=== PATIENT | male | born 1950 | race Caucasian/White ===

== ENCOUNTER 2019-02-02 10:27 | Emergency (ER) | payer OTHER ==
[~2019-02-02] VITALS: Ht 182.9 cm; Wt 113.4 kg
[2019-02-02 10:52] VITALS: Ht 182.9 cm; Wt 113.4 kg
[2019-02-02 13:40] LABS: BASOPHIL % 0.3 % (0-2); PLATELET COUNT 281 x10^3mcL (130-400); RED CELL DISTRIBUTION WIDTH 14.1 % (11.5-14.5)
[2019-02-02 13:50] LABS: CALCIUM 9.7 mg/dL (8.5-10.1); CARBON DIOXIDE 23.5 mmol/L (21-32); CHLORIDE SERUM 107 mmol/L (98-107); CREATININE SERUM 1.1 mg/dL (0.7-1.3); GFR1 > 60 mL/min; GLUCOSE SERUM 110 mg/dL (74-106); POTASSIUM SERUM 4.4 mmol/L (3.5-5.1); SODIUM SERUM 143 mmol/L (136-145)
[2019-02-02 13:53] LABS: ALBUMIN 3.8 g/dL (3.4-5.0); ALKALINE PHOSPHATASE 86 U/L (46-116); ALT/SGPT 33 U/L (16-63); AST/SGOT 19 U/L (15-37); BILIRUBIN TOTAL 1.3 mg/dL (0.20-1.00); HDL CHOLESTEROL 45 mg/dL (40-60); LIPASE 234 IU/L (73-393); TOTAL PROTEIN, SERUM 7.4 g/dL (6.4-8.2); TRIGLYCERIDES 110 mg/dL (<150)
[2019-02-02 13:57] LABS: CHOLESTEROL 128 mg/dL (<200); CHOLESTEROL/HDL RATIO 2.8
[2019-02-02 14:05] LABS: FREE T4 1.07 ng/dL (0.76-1.46); FREE THYROXINE INDEX 2.8 ug/dL (1.4-4.5); T4(THYROXINE) 8.9 ug/dL (4.7-13.3)
[2019-02-02 14:07] LABS: T3 TOTAL 1.04 ng/mL
[2019-02-02 14:26] LABS: microscopic required? NO
[2019-02-02 14:32] LABS: urine erythrocyte NEGATIVE (NEGATIVE)
[2019-02-02 15:41] VITALS: BP 144/93
== END 2019-02-02 15:48 | disposition home or self-care (01) ==
LOC: ED 10:27
PROVIDERS: Specialist
DX: R60.0 Localized edema (principal); I10 Essential (primary) hypertension; Z95.810 Presence of automatic (implantable) cardiac defibrillator; Z98.890 Other specified postprocedural states
CPT/HCPCS: 36415; 83880; 84439; Q0092